=== PATIENT | female | born 1955 | race African-American/Black ===

== ENCOUNTER 2016-12-19 19:50 | Emergency (ER) | payer OTHER ==
[2016-12-19 20:05] VITALS: TEMP 97.8; BMI 29.2
[2016-12-19] MEDS ORDERED: ONDANSETRON 4 MG/2 ML VIAL ONE (20:17)
[2016-12-19 20:23] LABS: BASOPHIL 0.5 % (0-2.0); EOSINOPHIL 0.9 % (0-4.5); MCH 27.1 pg (25.7-33.7); MCHC 32.3 g/dl (32.0-36.0); MEAN CELL VOLUME 83.8 fl (80-96); MEAN PLT VOLUME 9.5 fl (7.5-11.1); NEUTROPHILS 37.8 % (42.8-82.8); PLATELET COUNT 196 K/MM3 (134-434); RDW 13.4 % (11.6-15.6); WHITE BLOOD COUNT 8.8 K/mm3 (4.0-10.0)
[2016-12-19 20:33] LABS: INR 1.06 (0.82-1.09); PROTHROMBIN TIME (PATIENT) 11.7 SEC (9.98-11.88)
[2016-12-19 20:42] LABS: ALBUMIN 3.3 g/dl (3.4-5.0); ANION GAP 10 (8-16); BILIRUBIN,TOTAL 0.3 mg/dL (0.2-1.0); CALCIUM 8.4 mg/dL (8.5-10.1); CO2 25 mmol/L (21-32); COCKROFT - GAULT 94.8515; CREATININE 0.7 mg/dL (0.55-1.02); GLUCOSE,RANDOM 110 mg/dL (74-106); SGOT/AST 20 U/L (15-37); SGPT/ALT 19 U/L (12-78); TOT PROT 6.4 g/dl (6.4-8.2)
[2016-12-19 20:45] LABS: ALK PHOS 69 U/L (45-117); TROPONIN I < 0.02 ng/ml (0.00-0.05)
--- NOTE | 2016-12-19 20:58 | PDOC ---
History of Present Illness - General History Source: Patient Exam Limitations: No Limitations - History of Present Illness Initial Comments: 12/19/16 21:11 The patient is a 61-year-old female accompanied by daughter with a significant past medical history of asthma, irregular heart beat, HLD, hypothyroidism, and presents to the emergency department s/p witnessed syncopal episode today. As per daughter, the patient was in the kitchen when she felt nauseous and vomited once. The patient reported feeling faint, and the daughter reports that the patient was shaking and fainted immediately afterwards. The patient was caught by her daughter and did not fall. The daughter reported that the patient was sweating profusely after the episode. The patient states that she has flu symptoms and a cough for a few days. She states she did not eat much today. She also reports she had a MRI recently of the internal carotid and posterior arterial circulation with normal results. She also recently had a PET scan from the mid-thigh to neck with benign results. The patient denies chest pain, shortness of breath, and headache. The patient denies fever, chills, diarrhea and constipation. The patient denies dysuria, frequency, urgency and hematuria. Allergies: amoxicillin trihydrate, iodinated contrast media, potassium clavulanate Past Surgical History: partial hysterectomy, lower back surgery Social History: Former smoker PCP: Dr. Mila Arndt <Kristan Arroyo - Last Filed: 12/19/16 21:11> <Lea Hamilton - Last Filed: 12/19/16 22:39> - General Chief Complaint: Syncope/Near Syncope Stated Complaint: SYNCOPE Time Seen by Provider: 12/19/16 20:05 Past History <Kristan Arroyo - Last Filed: 12/19/16 21:11> - Past Medical History Anemia: No Asthma: Yes Cancer: No Cardiac Disorders: Yes (irregular heart beat) CVA: No COPD: No CHF: No Dementia: No Diabetes: No GI Disorders: No Disorders: No HTN: No Hypercholesterolemia: Yes Liver Disease: No Seizures: No Thyroid Disease: Yes - Surgical History Abdominal Surgery: Yes (hysterectomy, ovary cyst removal) Appendectomy: No Cardiac Surgery: No Cholecystectomy: No Lung Surgery: No Neurologic Surgery: Yes (spine sx) Orthopedic Surgery: No - Immunization History Immunization Up to Date: Yes - Psycho/Social/Smoking Cessation Hx Anxiety: No Suicidal Ideation: No Smoking Status: No Smoking History: Never smoked Number of Cigarettes Smoked Daily: 0 Hx Alcohol Use: No Drug/Substance Use Hx: No Substance Use Type: None Hx Substance Use Treatment: No <Lea Hamilton - Last Filed: 12/19/16 22:39> - Past Medical History Allergies/Adverse Reactions: Allergies Allergy/AdvReac Type Severity Reaction Status Date / Time amoxicillin trihydrate Allergy Mild Rash Verified 12/19/16 20:01 [From Augmentin] Iodinated Contrast Media - Allergy Mild Rash Verified 12/19/16 20:01 Oral and potassium clavulanate Allergy Mild Rash Verified 12/19/16 20:01 [From Augmentin] Home Medications: Ambulatory Orders Albuterol Sulfate Inhaler - [Ventolin HFA Inhaler -] 1 - 2 inh PO Q4H PRN Cholecalciferol (Vitamin D3) [Vitamin D] 5,000 unit PO DAILY 02/05/14 Levothyroxine [Synthroid -] 75 mcg PO DAILY 02/05/14 Metoprolol Succinate [Toprol XL -] 25 mg PO DAILY 02/05/14 Simvastatin 10 mg PO DAILY 02/05/14 Sumatriptan Succinate [Imitrex -] 25 mg PO PRN 02/05/14 Alprazolam [Xanax] 0.5 mg PO PRN 03/26/14 Pantoprazole Sodium [Protonix] 40 mg PO DAILY #0 tablet. 03/27/14 Review of Systems - Review of Systems Able to Perform ROS?: Yes Comments:: 12/19/16 21:11 CONSTITUTIONAL: Present: (+) diaphoresis Absent: fever, chills, generalized weakness, malaise, loss of appetite HEENT: Absent: rhinorrhea, nasal congestion, throat pain, throat swelling, difficulty swallowing, mouth swelling, ear pain, eye pain, visual changes CARDIOVASCULAR: Absent: chest pain, palpitations, irregular heart rate, lightheadedness, peripheral edema RESPIRATORY: Present: (+) cough Absent: shortness of breath, dyspnea with exertion, orthopnea, wheezing, stridor , hemoptysis GASTROINTESTINAL: Present: (+) nausea, (+) vomiting Absent: abdominal pain, abdominal distension, diarrhea, constipation, melena, hematochezia GENITOURINARY: Absent: dysuria, frequency, urgency, hesitancy, hematuria, flank pain, genital pain MUSCULOSKELETAL: Absent: myalgia, arthralgia, joint swelling SKIN: Absent: rash, itching, pallor HEMATOLOGIC/IMMUNOLOGIC: Absent: easy bleeding, easy bruising, lymphadenopathy, frequent infections ENDOCRINE: Absent: unexplained weight gain, unexplained weight loss, heat intolerance, cold intolerance NEUROLOGIC: Present: (+) syncope Absent: headache, focal weakness or paresthesias, dizziness, unsteady gait, seizure, mental status changes, bladder or bowel incontinence PSYCHIATRIC: Absent: anxiety, depression, suicidal or homicidal ideation, hallucinations. <Arroyo,Kristan - Last Filed: 12/19/16 21:11> *Physical Exam - Vital Signs Last Vital Signs Temp Pulse Resp BP Pulse Ox 97.8 F 78 18 124/56 97 12/19/16 19:59 12/19/16 19:59 12/19/16 19:59 12/19/16 19:59 12/19/16 19:59 - Physical Exam Comments: 12/19/16 21:12 GENERAL: Well developed, well nourished. Awake and alert. No acute distress. HEENT: Normocephalic, atraumatic. PERRLA, EOMI. No conjunctival pallor. Sclera are non- icteric. Moist mucous membranes. Oropharynx is clear. NECK: Supple. Full ROM. No JVD. Carotid pulses 2+ and symmetric, without bruits. No thyromegaly. No lymphadenopathy. CARDIOVASCULAR: Regular rate and rhythm. No murmurs, rubs, or gallops. Distal pulses are 2+ and symmetric. PULMONARY: No evidence of respiratory distress. Lungs clear to auscultation bilaterally. No wheezing, rales or rhonchi. ABDOMINAL: Soft. Non-tender. Non-distended. No rebound or guarding. No organomegaly. Normoactive bowel sounds. MUSCULOSKELETAL Normal range of motion at all joints. No bony deformities or tenderness. No CVA tenderness. EXTREMITIES: No cyanosis. No clubbing. No edema. No calf tenderness. SKIN: Warm and dry. Normal capillary refill. No rashes. No jaundice. NEUROLOGICAL: Alert, awake, appropriate. Cranial nerves 2-12 intact. No deficits to light touch and temperature in face, upper extremities and lower extremities. No motor deficits in the in face, upper extremities and lower extremities. Normoreflexic in the upper and lower extremities. Normal speech. Toes are down- going bilaterally. Gait is normal without ataxia. PSYCHIATRIC: Cooperative. Good eye contact. Appropriate mood and affect. <Kristan Arroyo - Last Filed: 12/19/16 21:11> - Vital Signs Last Vital Signs Temp Pulse Resp BP Pulse Ox 97.8 F 78 18 124/56 97 12/19/16 19:59 12/19/16 19:59 12/19/16 19:59 12/19/16 19:59 12/19/16 19:59 <HamiltonLea - Last Filed: 12/19/16 22:39> ED Treatment Course - LABORATORY CBC & Chemistry Diagram: 12/19/16 20:14 12/19/16 20:14 - ADDITIONAL ORDERS Additional order review: Laboratory Results 12/19/16 12/19/16 20:14 20:14 INR 1.06 Sodium 142 Potassium 3.6 Chloride 107 Carbon Dioxide 25 Anion Gap 10 BUN 13 D Creatinine 0.7 Creat Clearance w eGFR > 60 Random Glucose 110 H Calcium 8.4 L Total Bilirubin 0.3 AST 20 D ALT 19 Alkaline Phosphatase 69 Creatine Kinase 85 Troponin I < 0.02 Total Protein 6.4 Albumin 3.3 L 12/19/16 20:14 RBC 4.67 MCV 83.8 MCHC 32.3 RDW 13.4 MPV 9.5 Neutrophils % 37.8 L Lymphocytes % 51.3 H Monocytes % 9.5 Eosinophils % 0.9 Basophils % 0.5 <Kristan Arroyo - Last Filed: 12/19/16 21:11> - LABORATORY CBC & Chemistry Diagram: 12/19/16 20:14 12/19/16 20:14 - ADDITIONAL ORDERS Additional order review: Laboratory Results 12/19/16 12/19/16 20:14 20:14 INR 1.06 Sodium 142 Potassium 3.6 Chloride 107 Carbon Dioxide 25 Anion Gap 10 BUN 13 D Creatinine 0.7 Creat Clearance w eGFR > 60 Random Glucose 110 H Calcium 8.4 L Total Bilirubin 0.3 AST 20 D ALT 19 Alkaline Phosphatase 69 Creatine Kinase 85 Troponin I < 0.02 Total Protein 6.4 Albumin 3.3 L 12/19/16 20:14 RBC 4.67 MCV 83.8 MCHC 32.3 RDW 13.4 MPV 9.5 Neutrophils % 37.8 L Lymphocytes % 51.3 H Monocytes % 9.5 Eosinophils % 0.9 Basophils % 0.5 - RADIOLOGY Radiology Studies Ordered: Category Date Time Status CHEST PA & LAT [RAD] Stat Radiology 12/19/16 20:48 Ordered <Lea Hamilton - Last Filed: 12/19/16 22:39> Medical Decision Making - Medical Decision Making 12/19/16 20:54 Pt felt dizzy at home while she was in the kitchen with her family members. They grabbed her as she felt presyncopal. She never fell and never lost consciousness. She has no medical illness. States that she used to have a touch of asthma. Now with a viral syndrome that she caught at work. She has history of partial hysterectomy and back surgery and right knee pain for which she is getting PT. Pt is refusing CT head today. She comes with MRI result of her carotids and posterior neuro circulation that is normal, as well as a recent PET scan from her neck to her grisel thighs which is normal except for an adrenal adenoma, which incidentally was later tested and found to be normal. 12/19/16 21:00 Labs are normal; UA and CXR pending. Pt doesn't want head CT at this time, as she has no headache or dizziness. Incidentally her neuro exam and CN exam is normal. She has no nystagmus. 12/19/16 22:37 Pt is refusing CXR and UA at this time. She wants to go home. I spoke to her PMD Debra's partner, Dr. Eleanor Thakkar, who agrees pt ought to follow with them in the office early next week. Pt understands that she must return if she feels worse or if she has repeat pre- syncope, as we can work her up further. <Lea Hamilton - Last Filed: 12/19/16 22:39> *DC/Admit/Observation/Transfer - Attestations Scribe Attestion: 12/19/16 21:12 Documentation prepared by Kristan Arroyo, acting as diagnostic medical sonographer for Lea Hamilton MD. <Kristan Arroyo - Last Filed: 12/19/16 21:11> - Discharge Dispostion Admit: No <Lea Hamilton - Last Filed: 12/19/16 22:39> Diagnosis at time of Disposition: Near syncope, Viral respiratory illness - Discharge Dispostion Disposition: HOME Condition at time of disposition: Improved - Referrals Referrals: Mila Arndt MD [Primary Care Provider] - - Patient Instructions Printed Discharge Instructions: DI for Syncope in Adults (Fainting), DI for Viral Upper Respiratory Infection -- Adult
[2016-12-19 21:31] VITALS: BP 180/97; PULSE 72
--- NOTE | 2016-12-21 00:05 | EKG ---
Test Reason : Blood Pressure : / mmHG Vent. Rate : 072 BPM Atrial Rate : 072 BPM P-R Int : 184 ms QRS Dur : 084 ms QT Int : 396 ms P-R-T Axes : 024 -28 090 degrees QTc Int : 433 ms SINUS RHYTHM WITH OCCASIONAL PREMATURE VENTRICULAR COMPLEXES POSSIBLE LEFT ATRIAL ENLARGEMENT LEFT VENTRICULAR HYPERTROPHY INFERIOR INFARCT , AGE UNDETERMINED T WAVE ABNORMALITY, CONSIDER LATERAL ISCHEMIA ABNORMAL ECG WHEN COMPARED WITH ECG OF 05-FEB-2014 17:24, PREMATURE VENTRICULAR COMPLEXES ARE NOW PRESENT INFERIOR INFARCT IS NOW PRESENT T WAVE INVERSION NO LONGER EVIDENT IN ANTERIOR LEADS Confirmed by HEMANT KIRAN MD ([id number]) on 12/21/2016 12:05:31 AM Referred By: FREDRICK Confirmed By:HEMANT KIRAN MD
== END 2016-12-19 21:37 | disposition home or self-care (01) ==
LOC: JER 19:50
DX: R55 Syncope and collapse (principal); J06.9 Acute upper respiratory infection, unspecified; B97.89 Other viral agents as the cause of diseases classified elsewhere; J45.909 Unspecified asthma, uncomplicated; R00.9 Unspecified abnormalities of heart beat; E78.5 Hyperlipidemia, unspecified; E03.9 Hypothyroidism, unspecified
CPT/HCPCS: 36415; 80053; 82550; 84484; 85025; 85610; 93005; 93010; 99285-25

== ENCOUNTER 2017-04-28 09:57 | Emergency (ER) | payer OTHER ==
[2017-04-28 10:04] VITALS: TEMP 98; BMI 34.3
[2017-04-28] MEDS ORDERED: KETOROLAC TROMETHAMINE 30 MG/1 ML VIAL IM ONE (10:26)
[2017-04-28] MEDS ORDERED: LIDOCAINE 5% TOPICAL PATCH TP ONE (10:26)
[2017-04-28] MEDS ORDERED: CYCLOBENZAPRINE HCL 10 MG TABLET (FP) PO ONE (10:26)
[2017-04-28] MEDS ORDERED: KETOROLAC TROMETHAMINE 30 MG/1 ML VIAL ONE (10:30)
[2017-04-28] MEDS ORDERED: CYCLOBENZAPRINE HCL 10 MG TABLET (FP) ONE (10:30)
--- NOTE | 2017-04-28 10:42 | PDOC ---
History of Present Illness - General Chief Complaint: Pain Stated Complaint: BACK PAIN Time Seen by Provider: 04/28/17 10:16 History Source: Patient, Family - History of Present Illness Occurred: reports: other Severity: reports: severe Pain Location: reports: back Past History - Past Medical History Allergies/Adverse Reactions: Allergies Allergy/AdvReac Type Severity Reaction Status Date / Time amoxicillin trihydrate Allergy Mild Rash Verified 04/28/17 10:04 [From Augmentin] Iodinated Contrast- Oral and Allergy Mild Rash Verified 04/28/17 10:04 IV Dye potassium clavulanate Allergy Mild Rash Verified 04/28/17 10:04 [From Augmentin] Home Medications: Ambulatory Orders Albuterol Sulfate Inhaler - [Ventolin HFA Inhaler -] 1 - 2 inh PO Q4H PRN Cholecalciferol (Vitamin D3) [Vitamin D] 5,000 unit PO DAILY 02/05/14 Levothyroxine [Synthroid -] 75 mcg PO DAILY 02/05/14 Metoprolol Succinate [Toprol XL -] 25 mg PO DAILY 02/05/14 Simvastatin 10 mg PO DAILY 02/05/14 Sumatriptan Succinate [Imitrex -] 25 mg PO PRN 02/05/14 Alprazolam [Xanax] 0.5 mg PO PRN 03/26/14 Pantoprazole Sodium [Protonix] 40 mg PO DAILY #0 tablet.dr 03/27/14 Cyclobenzaprine HCl [Flexeril 10 mg] 10 mg PO TID PRN #9 tablet 04/28/17 Lidocaine 5% Patch [Lidoderm Patch -] 1 patch TP DAILY #30 patch 04/28/17 Anemia: No Asthma: Yes Cancer: No Cardiac Disorders: Yes (irregular heart beat) CVA: No COPD: No CHF: No Dementia: No Diabetes: No GI Disorders: No Disorders: No HTN: No Hypercholesterolemia: Yes Liver Disease: No Seizures: No Thyroid Disease: Yes - Surgical History Abdominal Surgery: Yes (hysterectomy, ovary cyst removal) Appendectomy: No Cardiac Surgery: No Cholecystectomy: No Lung Surgery: No Neurologic Surgery: Yes (spine sx) Orthopedic Surgery: No - Immunization History Immunization Up to Date: Yes - Psycho/Social/Smoking Cessation Hx Anxiety: No Suicidal Ideation: No Smoking Status: No Smoking History: Current some day smoker Number of Cigarettes Smoked Daily: 1 Information on smoking cessation initiated: No Hx Alcohol Use: No Drug/Substance Use Hx: No Substance Use Type: None Hx Substance Use Treatment: No Trauma Specific PMHX - Complaint Specific PMHX Arthritis: No Review of Systems - Review of Systems Constitutional: No: Chills, Fever ABD/GI: No: Nausea, Vomiting : No: Dysuria Musculoskeletal: Yes: Back Pain Neurological: No: Numbness, Tingling, Weakness *Physical Exam - Vital Signs Last Vital Signs Temp Pulse Resp BP Pulse Ox 98 F 70 18 150/90 100 04/28/17 09:59 04/28/17 09:59 04/28/17 09:59 04/28/17 09:59 04/28/17 09:59 - Physical Exam General Appearance: Yes: Appropriately Dressed, Severe Distress HEENT: positive: Normal Voice Neck: positive: Supple Respiratory/Chest: negative: Respiratory Distress Gastrointestinal/Abdominal: positive: Soft. negative: Tender Musculoskeletal: positive: Vertebral Tenderness (to R lower back). negative: CVA Tenderness Extremity: positive: Normal Inspection Integumentary: positive: Dry, Warm Neurologic: positive: Fully Oriented, Alert, Normal Mood/Affect, Motor Strength 5/5, Other (SLR deferred as pt unable to lay on stretcher at this time) ED Treatment Course - LABORATORY CBC & Chemistry Diagram: 04/28/17 11:30 04/28/17 11:30 Medical Decision Making - Medical Decision Making 04/28/17 10:34 62-year-old female, endorses history of chronic lower back pain s/p fall > 10 years ago, s/p R laminotomy, has since been dx w/ right-sided sciatica with multiple herniated discs and spinal stenosis on MRI 09/08, f/u with pain management and gets frequent epidural injections and on tramadol at home, presents with gradual worsening of her right lower back pain x 3 days, radiating to posterior aspect of right thigh and foot which is not new for pt. States pain was so severe she had to leave work early yesterday and was seen by her pain doctor and given steroid injection, but states pain persists. States tramadol also not relieving pain at home. Patient denies sensory changes, lower extremity weakness, bowel or bladder incontinence or saddle anesthesia See exam Acute on chronic LBP H/o sciatica w/ multiple herniated discs to LS spine and spinal stenosis on MRI No relief w/ tramadol and steroid injection given by pain MD yesterday No e/o cauda equina at this time -pain control -will c/w pain MD for recs (Dr Antoni Joaquin-[phone]) -dispo pending 04/28/17 10:45 04/28/17 10:51 Case d/w Dr Jemal M.D would not recommend steroids at this time as patient has received multiple steroid injections over the weekend so do not want to give additional steroids. Candace recommends that we get basic blood work to rule out other source. Agrees with admission for pain control if unable to control pain in ED 04/28/17 10:53 04/28/17 13:09 Labs unremarkable. Pt reports feeling better and able to bear weight. Will dc w / pain management f/u *DC/Admit/Observation/Transfer Diagnosis at time of Disposition: Back pain Qualifiers: Back pain location: low back pain Chronicity: acute Back pain laterality: right Sciatica presence: with sciatica Sciatica laterality: sciatica of right side Qualified Code(s): M54.41 - Lumbago with sciatica, right side - Discharge Dispostion Disposition: HOME Condition at time of disposition: Improved - Prescriptions Prescriptions: Cyclobenzaprine HCl [Flexeril 10 mg] 10 mg PO TID PRN #9 tablet PRN Reason: Back Pain Lidocaine 5% Patch [Lidoderm Patch -] 1 patch TP DAILY #30 patch - Patient Instructions Printed Discharge Instructions: Sciatica Additional Instructions: Take medications as directed and follow up with your pain specialist - Post Discharge Activity Work/School Note: Back to Work
[2017-04-28 11:43] LABS: EOSINOPHIL 0.2 % (0-4.5); MCH 26.5 pg (25.7-33.7); MCHC 31.8 g/dl (32.0-36.0); MEAN CELL VOLUME 83.4 fl (80-96); MEAN PLT VOLUME 9.9 fl (7.5-11.1); NEUTROPHILS 68.6 % (42.8-82.8); PLATELET COUNT 191 K/MM3 (134-434); RDW 12.8 % (11.6-15.6); WHITE BLOOD COUNT 12.6 K/mm3 (4.0-10.0)
[2017-04-28 12:21] LABS: ALBUMIN 3.5 g/dl (3.4-5.0); ANION GAP 7 (8-16); CALCIUM 8.9 mg/dL (8.5-10.1); CO2 28 mmol/L (21-32); CREATININE 0.6 mg/dL (0.55-1.02); GLUCOSE,RANDOM 102 mg/dL (74-106); SGOT/AST 11 U/L (15-37); SGPT/ALT 17 U/L (12-78)
[2017-04-28 12:23] LABS: ALK PHOS 63 U/L (45-117); BILIRUBIN,TOTAL 0.5 mg/dL (0.2-1.0); TOT PROT 6.7 g/dl (6.4-8.2)
[2017-04-28 12:34] LABS: URINE APPEARANCE CLEAR; URINE BILIRUBIN NEGATIVE (NEGATIVE); URINE BLOOD NEGATIVE (NEGATIVE); URINE COLOR STRAW; URINE GLUCOSE (UA) NEGATIVE (NEGATIVE); URINE KETONE NEGATIVE (NEGATIVE); URINE LEUK ESTERASE NEGATIVE (NEGATIVE); URINE NITRITE NEGATIVE (NEGATIVE); URINE PROTEIN NEGATIVE (NEGATIVE); URINE UROBILINOGEN NEGATIVE mg/dL (0.2-1.0)
[2017-04-28 13:04] VITALS: BP 147/80; PULSE 74
[2017-04-28] MEDS ORDERED: LIDOCAINE PATCH REMOVAL MC SCH (22:00)
== END 2017-04-28 13:40 | disposition home or self-care (01) ==
LOC: JER 09:57
PROC: 3E0233Z Introduction of Anti-inflammatory into Muscle, Percutaneous Approach (ICD-10-PCS; principal; 2017-04-28)
DX: M54.41 Lumbago with sciatica, right side (principal); M51.17 Intervertebral disc disorders with radiculopathy, lumbosacral region; E78.00 Pure hypercholesterolemia, unspecified; E03.9 Hypothyroidism, unspecified
CPT/HCPCS: 36415; 80053; 81003; 85025; 99283-25

== ENCOUNTER 2020-05-02 09:29 | Emergency (ER) | payer OTHER ==
[2020-05-02 09:40] VITALS: BP 151/86; PULSE 86; TEMP 97.3; BMI 34.3
[2020-05-02] MEDS ORDERED: KETOROLAC TROMETHAMINE 30 MG/1 ML VIAL IM ONE (10:16)
[2020-05-02] MEDS ORDERED: LIDOCAINE 5% TOPICAL PATCH TP ONE (10:17)
[2020-05-02] MEDS ORDERED: KETOROLAC TROMETHAMINE 30 MG/1 ML VIAL ONE ×2 (10:19→10:26)
[2020-05-02] MEDS ORDERED: LIDOCAINE 5% TOPICAL PATCH ONE ×2 (10:19→10:26)
--- NOTE | 2020-05-02 10:24 | PDOC ---
History of Present Illness - General Chief Complaint: Pain Stated Complaint: LT HIP PAIN Time Seen by Provider: 05/02/20 09:42 History Source: Patient Exam Limitations: Clinical Condition - History of Present Illness Initial Comments: 05/02/20 10:20 Patient with past medical history of CAD, hyperlipidemia and chronic back pain due to bulging disc present with complaint of one-week history of pain to lateral aspect of left hip radiating to left knee. Patient reports having MRI done in February which patient brings report which shows multiple bulging disc with narrowing of the foramina of L4-L5. Patient gave scheduled to follow- up with pain management and being followed by neurosurgery. Denies any trauma or injury to left hip. Patient reported increased pain with ambulation to lateral aspect of left hip which she describes as cramping pain. Denies fecal or urinary incontinence. Denies saddle paresthesia. Patient report taking Motrin 800 mg with minimal improvement. Occurred: reports: last week Past History - Medical History Allergies/Adverse Reactions: Allergies Allergy/AdvReac Type Severity Reaction Status Date / Time amoxicillin trihydrate Allergy Mild Rash Verified 05/02/20 09:40 [From Augmentin] Iodinated Contrast Media Allergy Mild Rash Verified 05/02/20 09:40 potassium clavulanate Allergy Mild Rash Verified 05/02/20 09:40 [From Augmentin] Home Medications: Ambulatory Orders Albuterol Sulfate Inhaler - [Ventolin HFA Inhaler -] 1 - 2 inh PO Q4H PRN 02/05/14 Cholecalciferol (Vitamin D3) [Vitamin D] 5,000 unit PO DAILY 02/05/14 Levothyroxine [Synthroid -] 75 mcg PO DAILY 02/05/14 Metoprolol Succinate [Toprol XL -] 25 mg PO DAILY 02/05/14 Simvastatin 10 mg PO DAILY 02/05/14 Sumatriptan Succinate [Imitrex -] 25 mg PO PRN 02/05/14 Alprazolam [Xanax] 0.5 mg PO PRN 03/26/14 Pantoprazole Sodium [Protonix] 40 mg PO DAILY #0 tablet. 03/27/14 Cyclobenzaprine HCl [Flexeril 10 mg] 10 mg PO TID PRN #9 tablet 04/28/17 Lidocaine 5% Patch [Lidoderm Patch -] 1 patch TP DAILY #30 patch 04/28/17 Diclofenac Sodium [Voltaren] 1 applic TP Q8H PRN #1 tube 05/02/20 Methocarbamol [Robaxin -] 500 mg PO BID PRN #14 tablet 05/02/20 Anemia: No Asthma: Yes Cancer: No Cardiac Disorders: Yes (irregular heart beat) CVA: No COPD: No CHF: No Dementia: No Diabetes: No GI Disorders: No Disorders: No HTN: No Hypercholesterolemia: Yes Liver Disease: No Seizures: No Thyroid Disease: Yes - Surgical History Abdominal Surgery: Yes (hysterectomy, ovary cyst removal) Appendectomy: No Cardiac Surgery: No Cholecystectomy: No Lung Surgery: No Neurologic Surgery: Yes (spine sx) Orthopedic Surgery: No - Reproductive History Is Patient Now?: No - Immunization History Immunization Up to Date: Yes - Psycho-Social/Smoking History Smoking Status: No Smoking History: Current every day smoker Have you smoked in the past 12 months: Yes Number of Cigarettes Smoked Daily: 1 Information on smoking cessation initiated: Yes - Substance Abuse Hx (Audit-C & DAST Scrn) How often the patient has a drink containing alcohol: Never Score: In Men: 4 or > Positive; In Women: 3 or > Positive: 0 Screen Result (Pos requires Nsg. Audit-10AR): Negative In the last yr the pt used illegal drug/Rx for NonMed reason: No Score: Yes response is considered Positive: 0 Screen Result (Positive result requires Nsg. DAST-10): Negative Trauma Specific PMHX - Complaint Specific PMHX Arthritis: No Review of Systems - Review of Systems Able to Perform ROS?: Yes Is the patient limited Estonian proficient: No Constitutional: No: Chills, Fever, Malaise HEENTM: No: Symptoms Reported, See HPI, Eye Pain, Blurred Vision, Tearing, Recent change in vision, Double Vision, Cataracts, Ear Pain, Ocular Prothesis, Ear Discharge, Nose Pain, Nose Congestion, Tinnitus, Nose Bleeding, Hearing Loss, Throat Pain, Throat Swelling, Mouth Pain, Dental Problems, Difficulty Swallowing, Mouth Swelling, Other Respiratory: No: Symptoms reported, See HPI, Cough, Orthopnea, Shortness of Breath, SOB with Exertion, SOB at Rest, Stridor, Wheezing, Productive cough, Hemoptysis, Other Cardiac (ROS): No: Symptoms Reported, See HPI, Chest Pain, Edema, Irregular Heart Rate, Lightheadedness, Palpitations, Syncope, Chest Tightness, Other ABD/GI: No: Symptoms Reported Musculoskeletal: Yes: Symptoms Reported, See HPI, Joint Pain (left hip), Muscle Pain (left hip pain) Integumentary: No: Symptoms Reported Neurological: No: Headache, Numbness, Paresthesia, Tingling, Weakness, Dizziness All Other Systems: Reviewed and Negative *Physical Exam - Vital Signs Last Vital Signs Temp Pulse Resp BP Pulse Ox 97.3 F L 86 18 151/86 99 05/02/20 09:36 05/02/20 09:36 05/02/20 09:36 05/02/20 09:36 05/02/20 09:36 - Physical Exam 05/02/20 10:24 GENERAL: Well developed, well nourished. Awake and alert in mild acute distress. PULMONARY: No evidence of respiratory distress. MUSCULOSKELETAL : moderate tenderness over left greater trochanter and ITB. No step-off to left hip. Patient ambulating with cane with normal gait. No radiculopathy. EXTREMITIES: No cyanosis. No clubbing. No edema. No calf tenderness. SKIN: Warm and dry. Normal capillary refill. NEUROLOGICAL: Alert, awake, appropriate. No motor deficits in the lower extremities. Gait is normal without ataxia with cane. PSYCHIATRIC: Cooperative. Good eye contact. Appropriate mood and affect. General Appearance: Yes: Nourished, Appropriately Dressed, Apparent Distress, Mild Distress ED Treatment Course - RADIOLOGY Radiology Studies Ordered: Category Date Time Status HIP & PELVIS-LEFT [RAD] Stat Radiology 05/02/20 09:44 Taken Medical Decision Making - Medical Decision Making 05/02/20 10:22 Patient with past medical history of CAD, hyperlipidemia and chronic back pain due to bulging disc present with complaint of one-week history of pain to later al aspect of left hip radiating to left knee. Patient reports having MRI done in February which patient brings report which shows multiple bulging disc with narrowing of the foramina of L4-L5. Patient gave scheduled to follow-up with pain management and being followed by neurosurgery. Denies any trauma or injury to left hip. Patient reported increased pain with ambulation to lateral aspect of left hip which she describes as cramping pain. Denies fecal or urinary incontinence. Denies saddle paresthesia. Patient report taking Motrin 800 mg with minimal improvement. Exam significant for moderate tenderness over left greater trochanter and ITB. No step-off to left hip. Patient ambulating with cane with normal gait. No radiculopathy. Patient symptoms likely trochanteric bursitis versus ITB arthralgia. Toradol 30 mg IM ordered for pain and Lidoderm placed for hip pain. Patient stable for discharge on Voltaren gel PRN for pain and Robaxin for spasm with follow-up back with orthopedics Discharge - Discharge Information Problems reviewed: Yes Clinical Impression/Diagnosis: Trochanteric bursitis of left hip, Iliotibial band syndrome of left side Condition: Stable Disposition: HOME - Admission No - Additional Discharge Information Prescriptions: Methocarbamol [Robaxin -] 500 mg PO BID PRN #14 tablet PRN Reason: hip pain Diclofenac Sodium [Voltaren] 1 applic TP Q8H PRN #1 tube PRN Reason: hip pain - Follow up/Referral Referrals: Mila Arndt MD [Primary Care Provider] - - Patient Discharge Instructions Patient Printed Discharge Instructions: Iliotibial Band Syndrome, DI for Hip Bursitis Additional Instructions: Your hip pain is likely inflammation of the bursa of the hip. Take prescribed medication as prescribed for pain. Apply heat to the hip 2-3 times a day as needed for pain. Follow-up with your orthopedics and pain management when scheduled for pain management - Post Discharge Activity
== END 2020-05-02 10:45 | disposition home or self-care (01) ==
LOC: JER 09:29
PROC: 3E0233Z Introduction of Anti-inflammatory into Muscle, Percutaneous Approach (ICD-10-PCS; principal; 2020-05-02)
DX: M70.62 Trochanteric bursitis, left hip (principal); M76.32 Iliotibial band syndrome, left leg
CPT/HCPCS: 73523-TC-FY; 99284-25

== ENCOUNTER 2020-08-06 14:54 | Emergency (ER) | payer OTHER ==
[2020-08-06 15:21] VITALS: BMI 34.3
[2020-08-06] MEDS ORDERED: ACETAMINOPHEN 500 MG TABLET (FP) PO ONE (15:37)
[2020-08-06] MEDS ORDERED: ACETAMINOPHEN 500 MG TABLET (FP) ONE (15:54)
[2020-08-06 16:55] VITALS: BP 141/83; PULSE 87; TEMP 99.4
== END 2020-08-06 16:56 | disposition home or self-care (01) ==
LOC: FER 14:54
DX: U07.1 COVID-19 (principal)
CPT/HCPCS: 99283-25; C9803; U0003

== ENCOUNTER 2021-03-19 09:13 | Day surgery (SDC) | payer OTHER ==
[2021-03-14 11:38] VITALS: BMI 34.3
[2021-03-19] MEDS ORDERED: PROPOFOL 20 ML ONE ×4 (09:20)
[2021-03-19 11:09] VITALS: TEMP 98.2
[2021-03-19 11:44] VITALS: BP 110/74; PULSE 66
== END 2021-03-19 11:47 | disposition home or self-care (01) ==
LOC: FASU-ENDO 09:13
PROVIDERS: ATTEND Internal Medicine Gastroenterology
PROC: 0DBN8ZX Excision of Sigmoid Colon, Via Natural or Artificial Opening Endoscopic, Diagnostic (ICD-10-PCS; principal; 2021-03-19 10:44)
DX: Z12.11 Encounter for screening for malignant neoplasm of colon (principal); D12.7 Benign neoplasm of rectosigmoid junction; K57.30 Diverticulosis of large intestine without perforation or abscess without bleeding; K64.0 First degree hemorrhoids

== ENCOUNTER 2022-12-22 22:06 | Inpatient (IN) | payer OTHER ==
[2022-12-22] MEDS ORDERED: ACETAMINOPHEN 1000 MG/100 ML BAG IVPB ONE (23:10)
[2022-12-22] MEDS ORDERED: FAMOTIDINE 20 MG/50 ML IVPB 20 MG/50 ML MG IVPB ONE ×2 (23:10→23:38)
[2022-12-22] MEDS ORDERED: MAG HYDROX/AL HYDROX/SIMETH 30 ML UNIT-DOSE CUP PO ONE (23:10)
[2022-12-22] MEDS ORDERED: MAG HYDROX/AL HYDROX/SIMETH 30 ML UNIT-DOSE CUP ONE (23:37)
[2022-12-22] MEDS ORDERED: ACETAMINOPHEN INJECTION 100 ML IVPB ONE (23:37)
[2022-12-23 00:16] LABS: BASO % 0.8 % (0-2.0); EOS % 0.8 % (0-4.5); HEMATOCRIT 41.8 % (32.4-45.2); HEMOGLOBIN 13.6 GM/dL (10.7-15.3); LYMPH % 34.9 % (8-40); MCH 26.8 pg (25.7-33.7); MCHC 32.6 g/dl (32.0-36.0); MEAN CELL VOLUME 82.2 fl (80-96); MEAN PLT VOLUME 9.6 fl (7.5-11.1); MONO % 7.1 % (3.8-10.2); NEUT % 56.4 % (42.8-82.8); PLATELET COUNT 227 10^3/uL (134-434); RBC 5.09 M/mm3 (3.60-5.2); RDW 13.4 % (11.6-15.6); WHITE BLOOD COUNT 12.8 K/mm3 (4.0-10.0)
[2022-12-23 00:38] LABS: ALBUMIN 3.6 g/dl (3.4-5.0); BLOOD UREA NITROGEN 16.8 mg/dL (7-18); CALCIUM 9.6 mg/dL (8.5-10.1)
[2022-12-23 00:41] LABS: CREATININE 0.8 mg/dL (0.55-1.3)
[2022-12-23 00:43] LABS: BILIRUBIN,TOTAL 0.4 mg/dL (0.2-1); TOT PROT 7.4 g/dl (6.4-8.2)
[2022-12-23 01:03] LABS: EPI CELLS >36 /uL (0-25.1); HYALINE CASTS 1 /uL (0-3.1); PH,URINE 5.5 (5.0-8.0); URINE APPEARANCE CLEAR; URINE BACTERIA 461 /uL (0-1359); URINE BILIRUBIN NEGATIVE (NEGATIVE); URINE COLOR YELLOW; URINE GLUCOSE (UA) NEGATIVE (NEGATIVE); URINE KETONE NEGATIVE (NEGATIVE); URINE LEUK ESTERASE 1+ (NEGATIVE); URINE NITRITE NEGATIVE (NEGATIVE); URINE PROTEIN NEGATIVE (NEGATIVE); URINE UROBILINOGEN 0.2 mg/dL (0.2-1.0); URINE WBC 87 /uL (0-25.8)
[2022-12-23] MEDS ORDERED: morphine CARPU-JECT 4 MG/1 ML DISP.SYRIN IVPUSH ONE (02:02)
[2022-12-23] MEDS ORDERED: morphine SULFATE 4 MG/ML VIAL ONE ×2 (02:13→13:14)
[2022-12-23] MEDS ORDERED: CEFTRIAXONE 1,000 MG in DEXTROSE 5%-WATER - 50 ML IVPB ONE (02:53)
[2022-12-23] MEDS ORDERED: CEFTRIAXONE 1 GM/50 ML BAG ONE (03:56)
[2022-12-23] MEDS ORDERED: ACETAMINOPHEN 325 MG TABLET (FP) PO PRN (04:33)
[2022-12-23] MEDS ORDERED: SIMETHICONE 80 MG TAB.CHEW (FP) PO PRN (04:35)
[2022-12-23] MEDS ORDERED: BACLOFEN 10 MG TABLET (FP) PO PRN (04:40)
[2022-12-23] MEDS ORDERED: ACETAMINOPHEN 1000 MG/100 ML BAG IVPB ONE (05:30)
[2022-12-23] MEDS ORDERED: KETOROLAC TROMETHAMINE 15 MG/ML VIAL IVPUSH ONE (05:32)
[2022-12-23] MEDS: SODIUM CHLORIDE 1,000 ML IV SCH (06:36)
[2022-12-23] MEDS ORDERED: KETOROLAC TROMETHAMINE 15 MG/ML VIAL ONE (06:38)
[2022-12-23] MEDS ORDERED: KETOROLAC TROMETHAMINE 15 MG/ML VIAL IVPUSH PRN (08:08)
[2022-12-23] MEDS ORDERED: ENOXAPARIN NA (PORCINE) 40 MG/0.4 ML DISP.SYRIN SQ SCH (10:00)
[2022-12-23] MEDS ORDERED: LORazepam 1 MG TABLET ONE (10:01)
[2022-12-23] MEDS ORDERED: ENOXAPARIN NA (PORCINE) 40 MG/0.4 ML DISP.SYRIN SQ ONE (10:02)
[2022-12-23] MEDS ORDERED: FAMOTIDINE 20 MG TABLET PO ONE (10:07)
[2022-12-23] MEDS: LORazepam 1 MG TABLET PO SCH ×3 (10:25→21:07)
[2022-12-23] MEDS ORDERED: SIMETHICONE 80 MG TAB.CHEW (FP) ONE ×3 (10:30→17:48)
[2022-12-23] MEDS ORDERED: FAMOTIDINE 20 MG TABLET ONE ×2 (10:30→10:36)
[2022-12-23] MEDS: SIMETHICONE 80 MG TAB.CHEW (FP) PO SCH ×3 (10:48→21:01)
[2022-12-23] MEDS ORDERED: metroNIDAZOLE 250 MG TABLET ONE (13:01)
[2022-12-23] MEDS ORDERED: ACETAMINOPHEN 325 MG TABLET (FP) ONE (13:07)
[2022-12-23] MEDS: metroNIDAZOLE 250 MG TABLET PO SCH ×2 (13:12→21:01)
[2022-12-23] MEDS: GABAPENTIN 300 MG CAPSULE PO SCH ×2 (21:01→22:11)
[2022-12-24] MEDS: metroNIDAZOLE 250 MG TABLET PO SCH ×3 (05:15→22:15)
[2022-12-24] MEDS: SODIUM CHLORIDE 1,000 ML IV SCH (06:50)
[2022-12-24] MEDS ORDERED: KETOROLAC TROMETHAMINE 15 MG/ML VIAL IVPUSH PRN (07:43)
[2022-12-24] MEDS ORDERED: BACLOFEN 10 MG TABLET (FP) PO PRN (07:43)
[2022-12-24] MEDS ORDERED: SODIUM CHLORIDE 1,000 ML IV SCH (07:43)
[2022-12-24] MEDS ORDERED: ACETAMINOPHEN 325 MG TABLET (FP) PO PRN (07:43)
[2022-12-24] MEDS: ENOXAPARIN NA (PORCINE) 40 MG/0.4 ML DISP.SYRIN SQ SCH ×2 (10:00→10:51)
[2022-12-24] MEDS ORDERED: CEFTRIAXONE 1 GM in DEXTROSE 5%-WATER - 50 ML IVPB SCH (10:00)
[2022-12-24] MEDS: CEFTRIAXONE 1 GM in DEXTROSE 5%-WATER - 50 ML IVPB SCH (10:50)
[2022-12-24] MEDS: LORazepam 1 MG TABLET PO SCH ×2 (10:51→22:14)
[2022-12-24] MEDS: SIMETHICONE 80 MG TAB.CHEW (FP) PO SCH ×4 (10:52→22:15)
[2022-12-24] MEDS: GABAPENTIN 300 MG CAPSULE PO SCH (22:15)
[2022-12-25] MEDS: GABAPENTIN 300 MG CAPSULE PO SCH ×3 (00:08→21:25)
[2022-12-25] MEDS: metroNIDAZOLE 250 MG TABLET PO SCH ×3 (05:09→21:23)
[2022-12-25 08:37] LABS: BASO % 0.3 % (0-2.0); EOS % 1.8 % (0-4.5); HEMATOCRIT 36.8 % (32.4-45.2); HEMOGLOBIN 12.5 GM/dL (10.7-15.3); LYMPH % 52.5 % (8-40); MCH 27.8 pg (25.7-33.7); MCHC 33.9 g/dl (32.0-36.0); MEAN CELL VOLUME 81.9 fl (80-96); MEAN PLT VOLUME 9.9 fl (7.5-11.1); NEUT % 38.4 % (42.8-82.8); PLATELET COUNT 204 10^3/uL (134-434); POTASSIUM 4.3 mmol/L (3.5-5.1); RBC 4.49 M/mm3 (3.60-5.2); RDW 13.1 % (11.6-15.6); WHITE BLOOD COUNT 7.2 K/mm3 (4.0-10.0)
[2022-12-25 08:47] LABS: ALBUMIN 3.2 g/dl (3.4-5.0); BLOOD UREA NITROGEN 8.1 mg/dL (7-18); CALCIUM 8.9 mg/dL (8.5-10.1)
[2022-12-25 08:49] LABS: CREATININE 0.7 mg/dL (0.55-1.3)
[2022-12-25 08:50] LABS: BILIRUBIN,TOTAL 0.4 mg/dL (0.2-1); TOT PROT 6.4 g/dl (6.4-8.2)
[2022-12-25] MEDS: CEFTRIAXONE 1 GM in DEXTROSE 5%-WATER - 50 ML IVPB SCH (09:32)
[2022-12-25] MEDS: ENOXAPARIN NA (PORCINE) 40 MG/0.4 ML DISP.SYRIN SQ SCH ×2 (09:33→10:59)
[2022-12-25] MEDS: POLYETHYLENE GLYCOL (HEALTHYLAX) 3350 17 GM PACKET PO SCH (09:33)
[2022-12-25] MEDS: LORazepam 1 MG TABLET PO SCH ×2 (09:33→21:23)
[2022-12-25 14:13] VITALS: RESP 18
[2022-12-25 15:54] VITALS: BMI 35.3
[2022-12-26] MEDS: metroNIDAZOLE 250 MG TABLET PO SCH ×2 (05:30→13:59)
[2022-12-26] MEDS: LORazepam 1 MG TABLET PO SCH (09:28)
[2022-12-26] MEDS: POLYETHYLENE GLYCOL (HEALTHYLAX) 3350 17 GM PACKET PO SCH ×2 (09:29→09:33)
[2022-12-26] MEDS: CEFTRIAXONE 1 GM in DEXTROSE 5%-WATER - 50 ML IVPB SCH (09:29)
[2022-12-26] MEDS: ENOXAPARIN NA (PORCINE) 40 MG/0.4 ML DISP.SYRIN SQ SCH (09:30)
[2022-12-26 14:03] VITALS: BP 148/87; PULSE 90; TEMP 98.4
== END 2022-12-26 15:46 | disposition home or self-care (01) | DRG 392 ==
LOC: JER 22:06 → JERBED 12-23 00:48 → OBSVTOIN 12-23 00:48 → INTOOBSV 12-23 00:48 → UNDOADMOB 12-23 00:48 → JERBED 12-23 16:58 → OBSVTOIN 12-23 16:58 → JERBED 12-23 18:04 → J5S 12-23 18:04
PROVIDERS: ADMIT Internal Medicine; ATTEND Student in an Organized Health Care Education/Training Program
DX: K57.32 Diverticulitis of large intestine without perforation or abscess without bleeding (principal); I42.1 Obstructive hypertrophic cardiomyopathy; N39.0 Urinary tract infection, site not specified; E78.5 Hyperlipidemia, unspecified; I10 Essential (primary) hypertension; G62.9 Polyneuropathy, unspecified; E03.9 Hypothyroidism, unspecified; K29.70 Gastritis, unspecified, without bleeding; R07.89 Other chest pain; R10.9 Unspecified abdominal pain
CPT/HCPCS: 36415; 73560-TC-RT-FY; 74176-TC; 80053; 81003; 83605; 83690; 84484; 84550; 85025; 86140; 87086; 93005; 93010; 93306-TC; 97116-GP; 97161-GP; 99285-25; C9803-CS; U0003; U0005

== ENCOUNTER 2023-01-14 02:57 | Emergency (ER) | payer OTHER ==
[2023-01-14] MEDS ORDERED: SODIUM CHLORIDE 1,000 ML IV SCH (03:00)
[2023-01-14 03:44] VITALS: RESP 18; TEMP 97.8
[2023-01-14 03:58] LABS: HEMATOCRIT 40.1 % (32.4-45.2); HEMOGLOBIN 13.3 GM/dL (10.7-15.3); MCH 27.3 pg (25.7-33.7); MCHC 33.2 g/dl (32.0-36.0); MEAN CELL VOLUME 82.2 fl (80-96); MEAN PLT VOLUME 9.5 fl (7.5-11.1); PLATELET COUNT 265 10^3/uL (134-434); RBC 4.88 M/mm3 (3.60-5.2); RDW 13.6 % (11.6-15.6); WHITE BLOOD COUNT 11.6 K/mm3 (4.0-10.0)
[2023-01-14 04:04] LABS: INR 1.02 (0.83-1.09); PROTHROMBIN TIME (PATIENT) 11.8 SEC (9.7-13.0)
[2023-01-14 04:07] LABS: ACTIVATED PTT 30.6 SECONDS (25.2-36.5)
[2023-01-14] MEDS ORDERED: ACETAMINOPHEN 1000 MG/100 ML BAG IVPB ONE (04:13)
[2023-01-14 04:15] LABS: CHLORIDE 109 mmol/L (98-107); POTASSIUM 3.7 mmol/L (3.5-5.1); SODIUM 143 mmol/L (136-145)
[2023-01-14] MEDS ORDERED: ACETAMINOPHEN INJECTION 100 ML IVPB ONE (04:16)
[2023-01-14 04:21] VITALS: BP 173/108; PULSE 73; BMI 36.0
[2023-01-14 04:53] LABS: ALBUMIN 3.7 g/dl (3.4-5.0); ALK PHOS 70 U/L (45-117); ANION GAP 7 MMOL/L (8-16); BILIRUBIN,TOTAL 0.3 mg/dL (0.2-1); BLOOD UREA NITROGEN 18.2 mg/dL (7-18); CALCIUM 9.1 mg/dL (8.5-10.1); CHOLESTEROL 186 mg/dL (50-200); CO2 28 mmol/L (21-32); CREATININE 0.7 mg/dL (0.55-1.3); GLUCOSE,RANDOM 85 mg/dL (74-106); HDL CHOLESTEROL 47 mg/dL (40-60); LDL CHOLESTEROL (ONLY SJRH) 92 mg/dL (5-100); SGOT/AST 25 U/L (15-37); SGPT/ALT 28 U/L (13-61); TOT PROT 7.5 g/dl (6.4-8.2)
[2023-01-14 07:23] LABS: ANISOCYTOSIS 0; MACROCYTOSIS 0
== END 2023-01-14 04:42 | disposition short-term general hospital (02) ==
LOC: JER 02:57
PROC: 3E033NZ Introduction of Analgesics, Hypnotics, Sedatives into Peripheral Vein, Percutaneous Approach (ICD-10-PCS; principal; 2023-01-14)
DX: R20.2 Paresthesia of skin (principal); R53.1 Weakness; I63.9 Cerebral infarction, unspecified; Z20.822 Contact with and (suspected) exposure to COVID-19
CPT/HCPCS: 0241U-QW; 36415; 70450-TC; 80053; 80061; 82550; 82962; 83036; 83735; 84484; 85025; 85610; 85730; 86850; 86900; 86901; 93005; 93010; 99285-25

== ENCOUNTER 2023-08-29 04:50 | Emergency (ER) | payer OTHER ==
[2023-08-29 05:02] VITALS: RESP 19; BMI 35.3
[2023-08-29 06:33] LABS: VENOUS BASE EXCESS 2.5 mmol/L (-2-2); VENOUS O2 SATURATION 53.8 % (70-80); VENOUS PCO2 55.2 mmHg (38-52); VENOUS PH 7.346 (7.310-7.410)
[2023-08-29 06:41] LABS: INR 0.99 (0.83-1.09); PROTHROMBIN TIME (PATIENT) 11.5 SEC (9.7-13.0)
[2023-08-29 06:41] LABS: HEMATOCRIT 42.2 % (32.4-45.2); HEMOGLOBIN 13.4 GM/dL (10.7-15.3); MCH 26.8 pg (25.7-33.7); MCHC 31.8 g/dl (32.0-36.0); MEAN CELL VOLUME 84.4 fl (80-96); MEAN PLT VOLUME 10.3 fl (7.5-11.1); PLATELET COUNT 191 10^3/uL (134-434); RDW 13.4 % (11.6-15.6)
[2023-08-29 06:44] LABS: ACTIVATED PTT 29.3 SECONDS (25.2-36.5)
[2023-08-29 08:20] LABS: ANISOCYTOSIS 0; HELMET CELLS 0; HOWELL-JOLLY BODIES 0; MACROCYTOSIS 0; OVALOCYTE 0; ROULEAU 0; SICKELED CELLS 0; TARGET CELLS 0; TEAR DROP CELLS 0; TOXIC GRANULATION 0
[2023-08-29 09:18] LABS: CALCIUM 8.5 mg/dL (8.5-10.1); POTASSIUM 4.1 mmol/L (3.5-5.1)
[2023-08-29 09:19] LABS: BLOOD UREA NITROGEN 13.4 mg/dL (7-18)
[2023-08-29 09:23] LABS: CREATININE 0.8 mg/dL (0.55-1.3)
[2023-08-29 10:48] VITALS: BP 126/91; PULSE 65; TEMP 98.2
== END 2023-08-29 11:24 | disposition home or self-care (01) ==
LOC: JER 04:50
DX: R06.02 Shortness of breath (principal); R07.9 Chest pain, unspecified; R22.1 Localized swelling, mass and lump, neck; R09.81 Nasal congestion; Z20.822 Contact with and (suspected) exposure to COVID-19
CPT/HCPCS: 0241U-QW; 36415; 71045-TC-FY; 80048; 82803; 84439; 84443; 84484; 85025; 85610; 85730; 87651; 93005; 93010; 99285-25